=== PATIENT | male | born 2000 | race Caucasian/White ===

== ENCOUNTER 2023-03-05 23:51 | Emergency (ER) | payer OTHER, SELFPAY ==
--- NOTE | ~2023-03-05 | XR_ITS ---
Portable chest x-ray Comparison: None Clinical History: Shortness of breath Findings: Lungs are clear, without focal consolidation or pleural effusion. Cardiomediastinal silho uette is unremarkable. Bones and soft tissues are unremarkable. Impression: Normal chest. Reviewed, dictated and finalized at location . Impression: Normal chest.
[2023-03-05 23:55] VITALS: BP 152/94; PULSE 115; RESP 18; TEMP 36.7; O2SAT 98
[2023-03-06 00:04] VITALS: BP 143/92; PULSE 107; RESP 16; O2SAT 99
[2023-03-06 00:05] VITALS: PULSE 114; O2SAT 98
--- NOTE | 2023-03-06 00:12 | ED.ASTHMA ---
HPI - Asthma General Chief Complaint: Asthma Stated Complaint: asthma Time Seen by Provider: 03/06/23 00:08 Source: patient Mode of arrival: ambulatory Limitations: no limitations History of Present Illness HPI Narrative: This is a 22-year-old male that presents to the emergency department for asthma exacerbation. Reports he has had worsening shortness of breath and wheezing. He ran out of his maintenance medication a month ago. He has been using his albuterol with little relief. Does report a cough. Denies fevers. Related Data Allergies Allergy/AdvReac Type Severity Reaction Status Date / Time No Known Allergies Allergy Verified 03/06/23 00:06 Review of Systems Review of Systems: CONSTITUTIONAL: Denies fever CARDIOVASCULAR: Denies chest pain, or edema. RESPIRATORY: Reports cough and dyspnea. All systems reviewed & are unremarkable except as noted in HPI and below PMFSH Past Medical History Medical History (Updated 03/06/23 @ 01:27 by Ally Thayer PA-C) History of asthma Social History Social History (Updated 03/06/23 @ 00:13 by Ally Thayer PA-C) Smoking status: Never smoker Exam Narrative: GENERAL: Well-appearing, well-nourished, and in no acute distress. HEAD: Normocephalic, atraumatic. EYES: EOMI. ENT: Nares clear, no rhinorrhea or epistaxis. Mucous membranes moist. Oropharynx without tonsillar hypertrophy exudate or other lesions. CHEST: No respiratory distress. Diffuse, expiratory wheezing. No rales or rhonchi HEART: Regular rate and rhythm. No murmur heard. Normal peripheral pulses. EXTREMITIES: Normal range of motion. No edema. SKIN: Warm, dry, no rash. NEURO: No focal deficits. Alert and oriented x3. PSYCH: Normal mood and affect Course Course Emergency Course: Patient with relief after hour-long nebulizer treatment Vital Signs Vital signs: Vital Signs Temperature 98.1 F 03/05/23 23:55 Pulse Rate 115 H 03/05/23 23:55 Respiratory Rate 18 03/05/23 23:55 Blood Pressure 152/94 H 03/05/23 23:55 Pulse Oximetry 98 03/05/23 23:55 Oxygen Delivery Room Air 03/05/23 23:55 Temperature 98.1 F 03/05/23 23:55 Pulse Rate 102 H 03/06/23 02:58 Respiratory Rate 96 H 10/06/23 02:58 Blood Pressure 145/70 H 03/06/23 02:58 Pulse Oximetry 22 L 03/06/23 02:58 Oxygen Delivery Room Air 03/06/23 00:05 MDM - Asthma MDM Narrative Medical decision making narrative: Patient presents to the emergency department for asthma exacerbation. He has been out of his maintenance medication for about a month. Patient is afebrile and nontoxic-appearing. Tachycardic upon arrival, this normalized with IV fluid administration. Diffuse wheezing upon arrival, patient was given hour-long nebulizer treatment and IV Solu-Medrol with relief. Chest x-ray without acute cardiopulmonary normality. Patient will be continued on oral steroids and given prescription for his Breo. He was given warnings to return to the ER Differential Diagnosis Differential diagnosis: Likely Acute exacerbation and Pneumonia Lab Data Attestation: I reviewed the patient's lab results. Labs: Lab Results 03/06/23 Range/Units 00:11 Influenza A (RT-PCR) Negative (Negative) Influenza B (RT-PCR) Negative (Negative) SARS-CoV-2 RNA (RT-PCR) Negative (Negative) Imaging Data My impression: Chest x-ray: No acute cardiopulmonary abnormality Critical Care Time Critical Care Time Critical Care Time: No Discharge Plan Discharge Clinical Impression: Asthma with acute exacerbation Qualifiers: Asthma severity: unspecified severity Asthma persistence: persistent Qualified Code(s): J45.901 - Unspecified asthma with (acute) exacerbation Patient Disposition: Home, Self-Care Condition: Improved Instructions: Asthma (ED) Additional Instructions: Return to the Emergency Department if you experience fever, chest pain, shortness of breath, or any other symptoms that a
[2023-03-06] MEDS: IPRATROPIUM BR 0.02% INH SOLN 0.5 MG/2.5 ML VIAL 1.5 MG INHALATION (00:15)
[2023-03-06] MEDS: ALBUTEROL SULFATE NEB 2.5 MG/3 ML INH 15 MG INHALATION (00:15)
[2023-03-06] MEDS: methylPREDNISolone SOD SUCC 125 MG VIAL IV PUSH (00:19)
[2023-03-06 00:21] VITALS: PULSE 84; RESP 22
[2023-03-06 00:56] LABS: Influenza A QL RT-PCR Negative (Negative); Influenza B QL RT-PCR Negative (Negative); SARS-CoV-2 RNA PCR Negative (Negative)
[2023-03-06 01:22] VITALS: BP 148/79; PULSE 96; RESP 17; O2SAT 100
[2023-03-06] MEDS: SODIUM CHLORIDE 0.9% IV 1,000 ML 999 ML IV CONT (01:32)
[2023-03-06 02:58] VITALS: BP 145/70; PULSE 102; RESP 22; O2SAT 96
[2023-03-06 03:33] VITALS: BP 139/71; PULSE 110; RESP 21; O2SAT 97
== END 2023-03-06 03:34 | disposition home or self-care (01) ==
PROVIDERS: Emergency Medicine; Emergency Provider Physician Assistant
DX: J45.901 Unspecified asthma with (acute) exacerbation (principal); Z20.822 Contact with and (suspected) exposure to COVID-19
CPT/HCPCS: 71045; 87502; 87635; 94640; 96361; 96374; 99284; J2930; J7030

== ENCOUNTER 2023-11-26 23:08 | Emergency (ER) | payer OTHER, SELFPAY ==
--- NOTE | ~2023-11-26 | XR_ITS ---
Portable chest x-ray Comparison: 03/06/2023 Clinical History: Cough Findings: There is hazy right perihilar airspace consolidation. Left lung clear. Cardiomediastinal silhouette is stable. Bones and soft tissues are unremarkable. Impression: Hazy right perihilar space consolidation, suspicious for pneumonia. Reviewed, dictated and finalized at location . Impression: Hazy right perihilar space consolidation, suspicious for pneumonia.
[2023-11-26 23:11] VITALS: BP 169/81; PULSE 117; RESP 20; TEMP 37.2; O2SAT 98
[2023-11-26 23:53] LABS: Strep Group A RT-PCR NOT DETECTED (Negative)
[2023-11-27 00:05] LABS: Influenza A QL RT-PCR Negative (Negative); Influenza B QL RT-PCR Negative (Negative); SARS-CoV-2 RNA PCR Negative (Negative)
[2023-11-27 01:29] VITALS: O2SAT 96
[2023-11-27 01:32] VITALS: BP 163/87; PULSE 109; RESP 17; O2SAT 96
[2023-11-27 03:02] VITALS: TEMP 38
[2023-11-27] MEDS: ACETAMINOPHEN 500 MG TABLET 1000 MG PO (03:10)
[2023-11-27] MEDS: IPRATROPIUM 0.5 MG/ALBUTEROL SULFATE 2.5 MG AMPUL.NEB 3 ML INHALATION (03:26)
[2023-11-27 03:28] VITALS: PULSE 108; RESP 17
[2023-11-27 03:33] VITALS: PULSE 109; RESP 16
--- NOTE | 2023-11-27 03:59 | ED.GENADULT ---
HPI - General Adult General Chief complaint: Upper Respiratory Infection Stated complaint: sore throat, fatigue Time Seen by Provider: 11/27/23 02:54 History of Present Illness HPI narrative: patient 22-year-old gentleman presents emergency department chief complaint of sore throat cough fatigue the patient reports symptoms ongoing for the last 5 days a reports that his cough has been productive reports her asthma Related Data Allergies Allergy/AdvReac Type Severity Reaction Status Date / Time No Known Allergies Allergy Verified 11/27/23 01:32 Review of Systems Review of Systems: A 10 system review of systems was completed on the patient and is negative except for what is stated in the HPI. Nursing and ancillary documentation was reviewed. [facility] Past Medical History Medical History History of asthma Social History Social History Smoking status: Never smoker Exam Narrative: GENERAL: Well-appearing, well-nourished, and in no acute distress. HEAD: Normocephalic, atraumatic. EYES: PERRLA and EOMI. ENT: Nares clear, no rhinorrhea or epistaxis. Mucous membranes moist. NECK: Supple. CHEST: Clear to auscultation. No respiratory distress. HEART: Regular rate and rhythm. No murmur heard. Normal peripheral pulses. ABDOMEN: Soft, nontender, nondistended, normal active bowel sounds. EXTREMITIES: Normal range of motion. No edema. SKIN: Warm, dry, no rash. NEURO: No focal deficits. Alert and oriented x3. PSYCH: Normal mood and affect. Course Vital Signs Vital signs: Vital Signs Temperature 37.2 C 11/26/23 23:11 Pulse Rate 117 H 11/26/23 23:11 Respiratory Rate 20 11/26/23 23:11 Blood Pressure 169/81 H 11/26/23 23:11 Pulse Oximetry 98 11/26/23 23:11 Oxygen Delivery Room Air 11/26/23 23:11 Temperature 38.0 C H 11/27/23 03:02 Pulse Rate 109 H 11/27/23 03:33 Respiratory Rate 16 11/27/23 03:33 Blood Pressure 163/87 H 11/27/23 01:32 Pulse Oximetry 96 11/27/23 01:32 Oxygen Delivery Room Air 11/27/23 01:29 Medical Decision Making MDM Narrative Medical decision making narrative: differential diagnosis includes pneumonia, upper respiratory infection, bronchitis chest x-ray showed some perihilar infiltrate on the right side COVID flu RSV were negative patient was started on cefdinir and Zithromax Vital Signs Vital Signs: Vital Signs Temperature 37.2 C 11/26/23 23:11 Pulse Rate 117 H 11/26/23 23:11 Respiratory Rate 20 11/26/23 23:11 Blood Pressure 169/81 H 11/26/23 23:11 Pulse Oximetry 98 11/26/23 23:11 Oxygen Delivery Room Air 11/26/23 23:11 Temperature 38.0 C H 11/27/23 03:02 Pulse Rate 109 H 11/27/23 03:33 Respiratory Rate 16 11/27/23 03:33 Blood Pressure 163/87 H 11/27/23 01:32 Pulse Oximetry 96 11/27/23 01:32 Oxygen Delivery Room Air 11/27/23 01:29 Lab Data Labs: Lab Results 11/26/23 Range/Units 23:18 Influenza A (RT-PCR) Negative (Negative) Influenza B (RT-PCR) Negative (Negative) SARS-CoV-2 RNA (RT-PCR) Negative (Negative) Group A Strep (PCR) Not detected (Negative) Discharge Plan Discharge Clinical Impression: Pneumonia Patient Disposition: Home, Self-Care Condition: Stable Instructions: Antibiotic Form, Pneumonia (ED) Prescriptions: New cefdinir 300 mg capsule 300 mg PO Q12H 10 Days Qty: 20 0RF azithromycin [Zithromax Z-Michael] 250 mg tablet See Rx Instructions PO .COMPLEX Qty: 6 0RF Rx Instructions: For 250 mg dose pack: take 500 mg today (day 1), then 250 mg for 4 days (days 2-5) benzonatate 200 mg capsule 200 mg PO TID PRN (Reason: cough) Qty: 21 0RF prednisone 20 mg tablet 40 mg PO DAILY 5 Days Qty: 10 0RF No Action fluticasone furoate-vilanterol [Breo Ellipta] 100-25 mcg/dose blister
[2023-11-27 04:12] VITALS: BP 132/70; PULSE 95; RESP 18; O2SAT 100
== END 2023-11-27 04:12 | disposition home or self-care (01) ==
PROVIDERS: Emergency Provider Emergency Medicine; PCP Registered Nurse
DX: J18.9 Pneumonia, unspecified organism (principal); Z20.822 Contact with and (suspected) exposure to COVID-19; J45.909 Unspecified asthma, uncomplicated; Z79.51 Long term (current) use of inhaled steroids
CPT/HCPCS: 71045; 87636; 87651; 94640; 99283; A9270

== ENCOUNTER 2024-02-23 18:26 | Emergency (ER) | payer OTHER, SELFPAY ==
[2024-02-23 18:53] VITALS: BP 146/87; PULSE 83; RESP 18; TEMP 36.6; O2SAT 94
--- NOTE | 2024-02-23 18:53 | ECG_ITS ---
Test Date: 2024-02-23 18:56:16 Measurements Intervals [place] Rate: 79 P: 49 VT: 112 QRS: 67 QRSD: 88 T: 43 QT: 351 QTc: 403 Interpretive Statements SINUS RHYTHM WITH SHORT VT INTERVAL NONSPECIFIC ST ELEVATION IN DIFFUSE LEADS BASELINE ARTIFACT- I, III, AVL, V1 BORDERLINE ECG No previous ECG available for comparison Electronically Signed On 02-23-2024 19:09:55 CDT by Brady Ceron D.O.
[2024-02-23] MEDS: ALBUTEROL SULFATE NEB 2.5 MG/3 ML INH 10 MG INHALATION (19:44)
[2024-02-23 19:46] VITALS: PULSE 65; RESP 18
[2024-02-23] MEDS: methylPREDNISolone SOD SUCC 125 MG VIAL IM (19:48)
--- NOTE | 2024-02-23 20:29 | ED.ASTHMA ---
HPI - Asthma General Chief Complaint: Asthma Stated Complaint: Asthma Time Seen by Provider: 02/23/24 19:19 History of Present Illness HPI Narrative: Patient is a 23-year-old male who presents to the emergency department this evening complaining of an asthma exacerbation. Patient admits that he does have a history of asthma and states that it is mild for the most part a known bothers him when he is exerting himself. Patient does have a steroid and albuterol inhalers at home and states that he does not use them frequently as he has not needed to and today he used to his steroid inhaler and felt as though it was not helping his symptoms. He did not use his albuterol inhaler. Patient denies any recent URI symptoms or flu-like symptoms and denies any sick contacts at home. Denies any fevers or chills at home. Denies any previous hospitalizations for his asthma. No additional symptoms or concerns at this time. Related Data Allergies Allergy/AdvReac Type Severity Reaction Status Date / Time No Known Allergies Allergy Verified 02/23/24 18:57 Review of Systems Review of Systems: All systems are reviewed and are negative unless stated otherwise in the HPI. [facility], [facility] Past Medical History Medical History History of asthma Social History Social History Smoking status: Never smoker Exam Narrative: General: Alert, awake, afebrile, in no acute distress. HEENT: PERRL, no rhinorrhea, no post nasal drip, oropharynx clear. Cardiovascular: Regular rate and rhythm, no murmurs, rubs or gallops, no peripheral edema. Respiratory: Diffuse bilateral wheezing, no tachypnea, no rhonchi, no rubs, no respiratory distress. Abdomen: Soft, nontender, nondistended, no rebound, no guarding, no peritoneal signs. Musculoskeletal: No joint swelling or deformity, normal muscle tone. Skin: No rashes or petechia, no signs of infection. Neurological: Alert and oriented to person, place, and time. Follows all commands. No focal deficits, speech is clear and fluent. Course Vital Signs Vital signs: Vital Signs Temperature 97.9 F 02/23/24 18:53 Pulse Rate 83 02/23/24 18:53 Respiratory Rate 18 02/23/24 18:53 Blood Pressure 146/87 H 02/23/24 18:53 Pulse Oximetry 94 02/23/24 18:53 Temperature 97.9 F 02/23/24 18:53 Pulse Rate 65 02/23/24 19:46 Respiratory Rate 18 02/23/24 19:46 Blood Pressure 146/87 H 02/23/24 18:53 Pulse Oximetry 94 02/23/24 18:53 MDM - Asthma MDM Narrative Medical decision making narrative: The patient was evaluated by myself in the emergency department. History is obtained from patient who is an independent historian and physical exam was performed. External medical records were reviewed at this time. IV was established and pertinent tests were ordered. Patient was administered an hour long albuterol breathing treatment and 125 mg of IM Solu-Medrol. Differential diagnosis considerations include acute viral syndrome, asthma exacerbation, infectious process such as pneumonia. Comorbidities impacting this visit include history of asthma. I have evaluated and discussed social determinants of health with the patient that could potentially impact subsequent diagnosis and treatment plans. On repeat assessment of the patient, reevaluation revealed that the patient is doing well and is in no acute distress. Patient symptoms have improved since hearrived to our emergency department. Repeat vital signs were all reviewed and noted to be stable. Differential diagnosis and treatment plan were discussed with the patient at bedside. Patient agrees with discussion and after shared medical decision making agrees with discharge. All questions were answered to the patient's satisfaction. Patient will follow up with his PCP in 3-5 days. A script for prednisone was sent to patient's pharmacy ta
[2024-02-23 20:46] VITALS: PULSE 92; RESP 18
[2024-02-23 20:49] VITALS: O2SAT 96
[2024-02-23 20:52] VITALS: BP 132/81; PULSE 87; RESP 17; TEMP 36.7; O2SAT 97
== END 2024-02-23 20:53 | disposition home or self-care (01) ==
PROVIDERS: Emergency Provider Emergency Medicine; PCP Registered Nurse
DX: J45.901 Unspecified asthma with (acute) exacerbation (principal); R94.31 Abnormal electrocardiogram [ECG] [EKG]
CPT/HCPCS: 93005; 94640; 96372; 99283; J2919